=== PATIENT | female | born 2000 ===

== ENCOUNTER 2018-09-02 06:31 | Outpatient (CLI) | payer BC ==
--- NOTE | 2018-09-02 09:56 | ULT ---
RIGHT UPPER QUADRANT SONOGRAM: HISTORY: Right upper quadrant pain. FINDINGS: Shadowing echogenic mobile stones are present within the gallbladder lumen. No gallbladder wall thic kening or pericholecystic fluid. The common duct is 0.2 cm. The liver is unremarkable without focal mass or intrahepatic biliary dilatation. No free fluid. IMPRESSION: 1. Cholelithiasis. 2. No evidence of acute biliary obstruction. POS: [facility]
== END 2018-09-02 06:32 | disposition home or self-care (01) ==
LOC: BICULT 06:31
PROVIDERS: ATTEND Internal Medicine Gastroenterology
DX: R10.10 Upper abdominal pain, unspecified (principal); R07.89 Other chest pain; K80.20 Calculus of gallbladder without cholecystitis without obstruction
CPT/HCPCS: 76705